=== PATIENT | male | born 1950 | race Caucasian/White ===

== ENCOUNTER 2022-09-01 14:37 | Emergency (ER) | payer OTHER ==
[2022-09-01] MEDS ORDERED: NA CHLORIDE 0.9% 500 ML ONE (15:05)
[2022-09-01 15:45] LABS: Absolute Lymphocytes (CBC) 0.6 K/uL (0.7-4.9); Hematocrit 34.9 % (39.6-49.0); Lymphocytes % 5.3 % (15.3-44.8); MCV 89.4 fL (80-100); MPV 6.5 fL (7.6-11.3); RBC Red Blood Cell Count 3.91 M/uL (4.33-5.43)
[2022-09-01 15:59] LABS: Protime INR 1.23
[2022-09-01 16:21] LABS: Albumin 2.9 g/dL (3.4-5.0); Bilirubin Direct 0.2 mg/dL (0-0.2); Bilirubin Total 0.7 mg/dL (0.2-1.0); Magnesium 1.7 mg/dL (1.8-2.4); Potassium 4.2 mmol/L (3.5-5.1); Protein, Total 7.8 g/dL (6.4-8.2); Troponin High Sensitivity 9.6 pg/mL (<58.9)
[2022-09-01 16:23] LABS: SARS-COV-2 RT PCR NEGATIVE (NEGATIVE)
--- NOTE | 2022-09-01 16:30 | RAD REPORT ---
EXAM DESCRIPTION: Adam Single View09/01/2022 3:34 pm CLINICAL HISTORY: Shortness breath COMPARISON: none FINDINGS: Mild to moderate patchy opacities left lung base. Right lung appears clear of acute infiltrate. Heart is normal size. Calcified mediastinal lymph node IMPRESSION: Mild to moderate patchy opacities left lung base probably pneumonia
[2022-09-01] MEDS ORDERED: Levofloxacin 750mg IV 750 MG/150 ML BAG IV ONE (17:19)
--- NOTE | 2022-09-01 19:02 | EDPHYS ---
Physician Documentation [facility] Name: Sahil Taylor Age: 71 yrs Sex: Male : 1950 Arrival Date: 09/01/2022 Time: 14:39 Bed 15 Private MD: Abiodun Madrigal E ED Physician Duglas Galicia HPI: 09/01 14:47 This 71 yrs old Male presents to ER via Ambulatory with complaints of Breathing jmm Difficulty. 14:47 The patient has shortness of breath at rest. Onset: The symptoms/episode began/occurred jmm gradually, 2 week(s) ago. Duration: The symptoms are continuous. The patient's shortness of breath is aggravated by nothing, is alleviated by nothing. Associated signs and symptoms: Pertinent positives: non-productive cough. This is a 71 year old male with a history of dm, htn that presents to the ED with complaints of cough, fatigue, nausea, decreased appetite for 2 weeks. . Historical: - Allergies: 15:56 No Known Allergies; em6 - PMHx: 15:56 Type 2 diabetes mellitus; Hypertensive disorder; em6 - PSHx: 15:56 Stented artery; em6 - Immunization history:: Adult Immunizations up to date. - Social history:: Smoking status: unknown. ROS: 14:47 Constitutional: Positive for body aches. jmm 14:47 Respiratory: Positive for cough. 14:47 Abdomen/GI: Positive for nausea. 14:47 All other systems are negative. Exam: 14:47 Constitutional: This is a well developed, well nourished patient who is awake, alert, jmm and in no acute distress. Head/Face: atraumatic. Eyes: EOMI, no conjunctival erythema appreciated ENT: Moist Mucus Membranes Neck: Trachea midline, Supple Chest/axilla: Normal chest wall appearance and motion. Cardiovascular: Regular rate and rhythm. No edema appreciated 14:47 Abdomen/GI: Non distended Back: Normal ROM Skin: General appearance color normal MS/ Extremity: Moves all extremities, no obvious deformities appreciated, no edema noted to the lower extremities Neuro: Awake and alert Psych: Behavior is normal, Mood is normal, Patient is cooperative and pleasant 14:47 Respiratory: the patient does not display signs of respiratory distress, Respirations: normal, Breath sounds: decreased breath sounds, that are mild, are heard in the left posterior lower lobe. Vital Signs: 14:55 BP 139 / 61; Pulse 88; Resp 18; Temp 98.7; Pulse Ox 100% ; Weight 91.63 kg; Height 5 ko1 ft. 11 in. (180.34 cm); Pain 0/10; 15:45 BP 123 / 53; Pulse 70; Resp 18; Pulse Ox 99% on R/A; em6 16:30 BP 141 / 58; Pulse 76; Resp 16; Pulse Ox 98% on R/A; em6 18:00 BP 135 / 62; Pulse 82; Resp 20; Pulse Ox 97% on R/A; em6 19:28 BP 136 / 68; Pulse 80; Resp 18; Pulse Ox 97% on R/A; em6 14:55 Body Mass Index 28.17 (91.63 kg, 180.34 cm) ko1 MDM: 14:47 Patient medically screened. [facility] 18:10 Data reviewed: vital signs, nurses notes. Counseling: I had a detailed discussion with [facility] the patient and/or guardian regarding: the historical points, exam findings, and any diagnostic results supporting the discharge/admit diagnosis, lab results, radiology results, the need for outpatient follow up, to return to the emergency department if symptoms worsen or persist or if there are any questions or concerns that arise at home. ED course: Patient is alert and non toxic in appearance in the ED. No signs of resp distress. Patient advised to follow up with pcp and otherwise given strict return precautions. Patient understood and agrees with the plan of care. . 09/01 14:59 Order name: Basic Metabolic Panel; Complete Time: 16:24 [facility] 09/01 14:59 Order name: CBC with Diff; Complete Time: 16:04 [facility] 09/01 14:59 Order name: LFT's; Complete Time: 16:24 [facility] 09/01 14:59 Order name: Magnesium; Complete Time: 16:24 [facility] 09/01 14:59 Order name: NT PRO-BNP; Complete Time: 16:24 [facility] 09/01 14:59 Order name: PT-INR; Complete Time: 16:04 [facility] 09/01 14:59 Order name: Troponin HS; Complete Time: 16:24 [facility] 09/01 14:59 Order name: XRAY Chest (1 view); Complete Time: 16:38 [facility] 09/01 14:59 Order name: EKG; Complete Time: 15:00 [facility] 09/01 14:59 Order name: COVID-19/FLU A+B/RSV; Complete Time: 16:24 [facility] 09/01 15:00 Order name: Lactate w/ 2H reflex if indic.; Complete Time: 16:24 [facility] 09/01 15:00 Order name: Blood Culture Adult (2) [facility] 09/01 14:59 Order name: Cardiac monitoring; Complete Time: 15:50 [facility] 09/01 14:59 Order name: EKG - Nurse/Tech; Complete Time: 15:50 [facility] 09/01 14:59 Order name: IV Saline Lock; Complete Time: 15:49 [facility] 09/01 14:59 Order name: Labs collected and sent; Complete Time: 15:49 [facility] 09/01 14:59 Order name: O2 Per Protocol; Complete Time: 15:50 [facility] 09/01 14:59 Order name: O2 Sat Monitoring; Complete Time: 15:50 [facility] Administered Medications: 15:50 Drug: NS 0.9% 500 ml Route: IV; Rate: bolus; Site: right antecubital; em6 16:49 Follow up: Response: No adverse reaction; IV Status: Completed infusion; IV Intake: em6 500ml 17:25 Drug: LevaQUIN (levofloxacin) 750 mg Volume: 150 ml; Route: IVPB; Infused Over: 90 em6 mins; Site: right antecubital; 19:00 Follow up: Response: No adverse reaction; IV Status: Completed infusion; IV Intake: em6 150ml Disposition: 09/02 10:51 Co-signature as Attending Physician, Duglas Galicia MD I agree with the assessment and kdr plan of care. Disposition Summary: 09/01/22 19:02 Discharge Ordered Location: Home [facility] Condition: Stable [facility] Diagnosis - Unspecified bacterial pneumonia [facility] Followup: [facility] - With: Abiodun Madrigal MD - When: 1 - 2 days - Reason: Recheck today's complaints, Continuance of care, Re-evaluation by your physician Discharge Instructions: - Discharge Summary Sheet kdr - Community-Acquired Pneumonia, Adult [facility] Forms: - Medication Reconciliation Form [facility] - Thank You Letter [facility] - Antibiotic Education [facility] - Prescription Opioid Use [facility] Prescriptions: - levofloxacin 750 mg Oral Tablet - take 1 tablet by ORAL route once daily for 6 days; 6 tablet; Refills: 0, kdr Product Selection Permitted - PROMETHAZINE DM - take 10 milliliter by ORAL route every 4-6 hours As needed; 200 milliliter; jmm Refills: 0, Product Selection Permitted Signatures: Dispatcher [employer] Duglas Heaton MD MD kdr Drew Go PA PA jmm Martinez, Erika RN RN em6 Phuong Pineda RN RN ko1
--- NOTE | 2022-09-01 19:02 | ER ---
Nurse's Notes [facility] Name: Sahil Taylor Age: 71 yrs Sex: Male : 1950 Arrival Date: 09/01/2022 Time: 14:39 Bed 15 Private MD: Abiodun Young E Diagnosis: Unspecified bacterial pneumonia Presentation: 09/01 14:55 Chief complaint: Patient states: " we were at dr. young office and when she listened to ko1 my lungs she told us to go to the er to get a chest X-ray and some workup ". Coronavirus screen: Client denies travel out of the [place] in the last 14 days. Ebola Screen: Patient negative for fever greater than or equal to 101.5 degrees Fahrenheit, and additional compatible Ebola Virus Disease symptoms. Initial Sepsis Screen: Does the patient meet any 2 criteria? No. Patient's initial sepsis screen is negative. Does the patient have a suspected source of infection? No. Patient's initial sepsis screen is negative. Risk Assessment: Do you want to hurt yourself or someone else? Patient reports no desire to harm self or others. Onset of symptoms was August 25, 2022. 14:55 Acuity: PARDEEP 3 ko1 14:55 Method Of Arrival: Ambulatory ko1 Triage Assessment: 14:58 General: Appears in no apparent distress. Behavior is cooperative. Respiratory: Onset: ko1 The symptoms/episode began/occurred gradually. Respiratory: the patient has mild shortness of breath. Historical: - Allergies: 15:56 No Known Allergies; em6 - PMHx: 15:56 Type 2 diabetes mellitus; Hypertensive disorder; em6 - PSHx: 15:56 Stented artery; em6 - Immunization history:: Adult Immunizations up to date. - Social history:: Smoking status: unknown. Screenin:55 Abuse screen: Denies threats or abuse. Nutritional screening: No deficits noted. ko1 Tuberculosis screening: No symptoms or risk factors identified. 15:57 Fall Risk Ambulatory Aid- None/Bed Rest/Nurse Assist (0 pts). Gait- Normal/Bed em6 Rest/Wheelchair (0 pts) Total Singh Fall Scale indicates No Risk (0-24 pts). Assessment: 14:54 General: Appears in no apparent distress. Behavior is cooperative. Pain: Denies pain. ko1 Neuro: Level of Consciousness is awake, alert, obeys commands, Oriented to person, place, time, situation. Cardiovascular: Heart tones present Patient's skin is warm and dry. Respiratory: Reports shortness of breath cough that is Airway is patent Respiratory effort is even, unlabored, Respiratory pattern is regular, agonal Breath sounds are clear bilaterally. GI: Abdomen is non-distended, Bowel sounds present X 4 quads. Abd is soft and non tender X 4 quads. : No signs and/or symptoms were reported regarding the genitourinary system. EENT:. EENT: No signs and/or symptoms were reported regarding the EENT system. Derm: No signs and/or symptoms reported regarding the dermatologic system. Musculoskeletal: Circulation, motion, and sensation intact. 15:50 Reassessment: Patient appears in no apparent distress at this time. No changes from em6 previously documented assessment. Patient and/or family updated on plan of care and expected duration. Pain level reassessed. Patient is alert, oriented x 3, equal unlabored respirations, skin warm/dry/pink. 15:57 Cardiovascular: Rhythm is sinus rhythm. em6 16:50 Reassessment: Patient appears in no apparent distress at this time. No changes from em6 previously documented assessment. Patient and/or family updated on plan of care and expected duration. Pain level reassessed. Patient is alert, oriented x 3, equal unlabored respirations, skin warm/dry/pink. 17:50 Reassessment: Patient appears in no apparent distress at this time. No changes from em6 previously documented assessment. Patient and/or family updated on plan of care and expected duration. Pain level reassessed. Patient is alert, oriented x 3, equal unlabored respirations, skin warm/dry/pink. 18:50 Reassessment: Patient appears in no apparent distress at this time. No changes from em6 previously documented assessment. Patient and/or family updated on plan of care and expected duration. Pain level reassessed. Patient is alert, oriented x 3, equal unlabored respirations, skin warm/dry/pink. Vital Signs: 14:55 BP 139 / 61; Pulse 88; Resp 18; Temp 98.7; Pulse Ox 100% ; Weight 91.63 kg; Height 5 ko1 ft. 11 in. (180.34 cm); Pain 0/10; 15:45 BP 123 / 53; Pulse 70; Resp 18; Pulse Ox 99% on R/A; em6 16:30 BP 141 / 58; Pulse 76; Resp 16; Pulse Ox 98% on R/A; em6 18:00 BP 135 / 62; Pulse 82; Resp 20; Pulse Ox 97% on R/A; em6 19:28 BP 136 / 68; Pulse 80; Resp 18; Pulse Ox 97% on R/A; em6 14:55 Body Mass Index 28.17 (91.63 kg, 180.34 cm) ko1 ED Course: 14:39 Patient arrived in ED. am2 14:39 Abiodun Young MD is Private Physician. am2 14:40 Drew Go PA is PHCP. jmm 14:40 Duglas Galicia MD is Attending Physician. jmm 14:42 Phuong Pineda, MARK ANTHONY is Primary Nurse. ko1 14:58 Triage completed. ko1 14:58 Arm band placed on. ko1 14:59 Bed in low position. Call light in reach. Side rails up X 1. strategic planning director on. Pulse ko1 ox on. NIBP on. Warm blanket given. 15:25 Initial lab(s) drawn, by me, sent to lab. First set of blood cultures drawn by me. em1 Inserted saline lock: 20 gauge in right antecubital area, using aseptic technique. Blood collected. 15:36 XRAY Chest (1 view) In Process Unspecified. EDMS 15:45 Second set of blood cultures drawn. em1 19:01 Abiodun Young MD is Referral Physician. [facility] 19:30 No provider procedures requiring assistance completed. IV discontinued, intact, em6 bleeding controlled, No redness/swelling at site. Pressure dressing applied. Administered Medications: 15:50 Drug: NS 0.9% 500 ml Route: IV; Rate: bolus; Site: right antecubital; em6 16:49 Follow up: Response: No adverse reaction; IV Status: Completed infusion; IV Intake: em6 500ml 17:25 Drug: LevaQUIN (levofloxacin) 750 mg Volume: 150 ml; Route: IVPB; Infused Over: 90 em6 mins; Site: right antecubital; 19:00 Follow up: Response: No adverse reaction; IV Status: Completed infusion; IV Intake: em6 150ml Medication: 19:30 VIS not applicable for this client. em6 Intake: 16:49 IV: 500ml; Total: 500ml. em6 19:00 IV: 150ml; Total: 650ml. em6 Outcome: 19:02 Discharge ordered by . adriel 19:30 Discharged to home via wheelchair. em6 19:30 Condition: stable 19:30 Discharge instructions given to patient, family, Instructed on discharge instructions, follow up and referral plans. Demonstrated understanding of instructions, follow-up care, medications, Prescriptions given X 2. 19:30 Patient left the ED. em6 Signatures: Dispatcher [employer] EDMS Drew Go PA PA jmm Martinez, Eric em1 Johanna Giordano am2 Margaret Simental, RN RN em6 Phuong Pineda RN RN ko1
[2022-09-01 21:39] VITALS: TEMP 98.7
[2022-09-01 21:55] VITALS: O2SAT 97
[2022-09-01 22:00] VITALS: BP 136/68
--- NOTE | 2022-09-02 08:38 | EKG ---
Test Date: 2022-09-01 Test Time: 15:09:53 [employer] Coach: MEASUREMENT RESULTS: Intervals: Rate: 90 MD: 200 QRSD: 130 QT: 374 QTc: 457 Benton: P: -24 MD: 200 QRS: 14 T: 40 INTERPRETIVE STATEMENTS: Normal sinus rhythm Right bundle branch block Septal infarct, age undetermined Possible Lateral infarct, age undetermined Possible Inferior infarct, age undetermined Abnormal ECG No previous ECG available for comparison Electronically Signed On 09-02-22 08:34:45 SENIOR BENEFITS ANALYST by Robert Tiwari
== END 2022-09-01 19:30 | disposition home or self-care (01) ==
LOC: ER 14:37
DX: J15.9 Unspecified bacterial pneumonia (principal); E11.9 Type 2 diabetes mellitus without complications; I10 Essential (primary) hypertension; Z20.822 Contact with and (suspected) exposure to COVID-19
CPT/HCPCS: 96365; 96361; 93005; 87040 ×2; 85025; 80048; 36415; 83735; 85610; 80076; 83605; 84484; 83880; 0241U; 71045; 99284; 96366; J7040

== ENCOUNTER 2024-02-06 10:22 | Emergency (ER) | payer OTHER ==
[2024-02-06 11:11] LABS: Absolute Eosinophils 0.1 K/uL (0-0.5); Absolute Lymphocytes (CBC) 0.5 K/uL (0.7-4.9); Absolute Monocytes 0.4 K/uL (0.1-1.3); Absolute Neutrophil 3.8 K/uL (1.8-8.0); Basophils % 0.7 % (0-1.3); Eosinophils % 2.9 % (0-4.4); Hematocrit 42.7 % (39.6-49.0); Hemoglobin 14.4 g/dL (13.6-17.9); Lymphocytes % 9.9 % (15.3-44.8); MCH 30.8 pg (27.0-35.0); MCHC 33.8 g/dL (32.0-36.0); MCV 91.1 fL (80-100); MPV 7.5 fL (7.6-11.3); Monocytes % 8.6 % (3.3-12.3); Neutrophils % 77.9 % (41.7-73.7); Nucleated Red Blood Cells % 0.1 % (0-0); Platelets 180 thou/uL (152-406); RBC Red Blood Cell Count 4.69 M/uL (4.33-5.43); Red Cell Distribution Width 14.2 % (12.1-15.2)
[2024-02-06 11:15] LABS: PT Prothrombin Time 11.7 SECONDS (9.5-12.5); PTT, Activated Partial Thromb 29.5 SECONDS (24.3-36.9); Protime INR 1.07
[2024-02-06] MEDS ORDERED: CEFTRIAXONE 1000 MG/VIAL ONE (11:15)
[2024-02-06] MEDS ORDERED: AZITHROMYCIN 500 MG INJ IVPB ONE (11:15)
[2024-02-06] MEDS ORDERED: NA CHLORIDE 0.9% 250 ML ONE (11:16)
[2024-02-06] MEDS ORDERED: MORPHINE 4 MG/ML SYR ONE (11:16)
[2024-02-06 11:28] LABS: Albumin 3.7 g/dL (3.4-5.0); Albumin/Globulin Ratio 0.9 (1.1-1.8); Anion Gap 10.1 mEq/L (5.0-15.0); Bilirubin Direct 0.2 mg/dL (0-0.2); Bilirubin Indirect, Calculated 0.6 mg/dL (0.2-0.8); Bilirubin Total 0.8 mg/dL (0.2-1.0); Globulin 4.3 g/dL (2.3-3.5); Potassium 4.1 mEq/L (3.5-5.1); Troponin High Sensitivity 14.1 pg/mL (<58.9)
[2024-02-06 11:45] LABS: INFLUENZA A NAA NEGATIVE (NEGATIVE); RESPIRATORY SYNCYTIAL VIR NAA NEGATIVE (NEGATIVE)
--- NOTE | 2024-02-06 11:49 | RAD REPORT ---
EXAM DESCRIPTION: RAD - Chest Single View - 02/06/2024 11:44 am CLINICAL HISTORY: COPD;Cough Chest pain. COMPARISON: Chest Single View dated 09/01/2022 FINDINGS: Portable technique limits examination quality. The lungs are underinflated but grossly clear. The heart is normal in size. No displaced fractures. IMPRESSION: No acute intrathoracic process suspected.
--- NOTE | 2024-02-06 11:57 | RAD REPORT ---
EXAM DESCRIPTION: CT - Chest Abdomen Pelvis W Cont - 02/06/2024 11:48 am CLINICAL HISTORY: Chest and abdomen pain. sob, abd pain, R side hernia pain COMPARISON: No comparisons TECHNIQUE: Approximately 100 mL nonionic IV contrast was administered to the patient. All CT scans are performed using dose optimization technique as appropriate and may include automated exposure control or mA/KV adjustment according to patient size. FINDINGS: Mild to moderate COPD.Normal thyroid gland.No pleural or pericardial effusion.No intrathor acic adenopathy. The liver, spleen, pancreas, adrenal glands and kidneys are within normal limits. No bowel obstruction, free air, free fluid or abscess. The prominent sigmoid diverticulosis coli with out diverticulitis. The appendix is not identified as a discrete structure, however, no secondary fin dings of appendicitis are identified. No pathologic lymphadenopathy in the abdomen or pelvis. 4.9 cm infrarenal abdominal aortic aneurysm. No acute fracture seen. IMPRESSION: [id number] COPD. Sigmoid diverticulosis coli without diverticulitis. 4.9 cm infrarenal abdominal aortic aneurysm.
[2024-02-06] MEDS ORDERED: NA CHLORIDE 0.9% 1,000 ML ONE (12:04)
[2024-02-06 12:14] LABS: SARS-COV-2 RT PCR POSITIVE (NEGATIVE)
[2024-02-06] MEDS ORDERED: METHYLPREDNISOLONE 125 MG INJ ONE (12:48)
--- NOTE | 2024-02-06 14:14 | ER ---
Nurse's Notes [facility] Name: Sahil Taylor Age: 73 yrs Sex: Male : 1950 Arrival Date: 02/06/2024 Time: 10:22 Bed 5 Private MD: Diagnosis: SARS-associated coronavirus as the cause of diseases classified elsewhere;COPD/ Chronic obstructive pulmonary disease with (acute) exacerbation Presentation: 02/05 10:35 Chief complaint: Cough and SOB x 4-5 days, right sided abdominal pain since this morning. Coronavirus screen: At this time, the client does not indicate any symptoms associated with coronavirus-19. Ebola Screen: No symptoms or risks identified at this time. Initial Sepsis Screen: Does the patient meet any 2 criteria? RR > 20 per min. No. Patient's initial sepsis screen is negative. Does the patient have a suspected source of infection? No. Patient's initial sepsis screen is negative. Risk Assessment: Do you want to hurt yourself or someone else? Patient reports no desire to harm self or others. Onset of symptoms was February 02, 2024. 10:35 Method Of Arrival: Ambulatory hb 10:35 Acuity: PARDEEP 2 hb Triage Assessment: 10:37 General: Appears mildly distressed. Behavior is calm, cooperative. Pain: Pain currently hb is 7 out of 10 on a pain scale. Neuro: Level of Consciousness is awake, alert, obeys commands, Oriented to person, place, time, situation. Cardiovascular: Patient's skin is warm and dry. Respiratory: Reports shortness of breath at rest on exertion cough that is Respiratory effort is labored, Respiratory pattern is tachypnea Onset: The symptoms/episode began/occurred 4 days, the patient has moderate shortness of breath. GI: Reports right sided abdominal pain. Historical: - Allergies: 10:36 No Known Allergies; hb - PMHx: 10:36 Hypertensive disorder; Type 2 Diabetes Mellitus; hb 10:37 COPD; hb - PSHx: 10:36 Stented artery; hb - Immunization history:: Adult Immunizations up to date. - Infectious Disease History:: Denies. - Social history:: Smoking status: Patient/guardian denies using tobacco, the patient reports quitting approximately 5 years ago. Screenin:[address] [facility] ED Fall Risk Assessment (Adult) History of falling in the last 3 months, iw including since admission No falls in past 3 months (0 pts) Confusion or Disorientation No (0 pts) Intoxicated or Sedated No (0 pts) Impaired Gait No (0 pts) Mobility Assist Device Used No (0 pt) Altered Elimination No (0 pt) Score/Fall Risk Level 0 - 2 = Low Risk. Abuse screen: Denies threats or abuse. Denies injuries from another. Nutritional screening: No deficits noted. Tuberculosis screening: No symptoms or risk factors identified. Assessment: 10:40 General: Appears distressed, uncomfortable, Behavior is calm, cooperative, appropriate ll1 for age. Pain: Complains of pain in R abdomen Quality of pain is described as aching. Cardiovascular: Reports chest pain, fatigue, shortness of breath, Rhythm is regular. Respiratory: Reports shortness of breath cough that is. GI: Reports upper abdominal pain. 11:20 Reassessment: No changes from previously documented assessment. Patient and/or family ll1 updated on plan of care and expected duration. Pain level reassessed. Patient is alert, oriented x 3, equal unlabored respirations, skin warm/dry/pink. 12:10 Reassessment: No changes from previously documented assessment. Patient and/or family ll1 updated on plan of care and expected duration. Pain level reassessed. Patient is alert, oriented x 3, equal unlabored respirations, skin warm/dry/pink. Patient states feeling better. 13:38 Reassessment: Patient appears in no apparent distress at this time. Patient and/or iw family updated on plan of care and expected duration. Pain level reassessed. Patient is alert, oriented x 3, equal unlabored respirations, skin warm/dry/pink. Patient states feeling better. Patient states symptoms have improved. Vital Signs: 10:35 BP 122 / 73; Pulse 83; Resp 28; Temp 97.3(TE); Pulse Ox 100% on R/A; Weight 98.88 kg; hb Height 6 ft. 0 in. ; Pain 7/10; 13:38 BP 135 / 64; Pulse 69; Resp 20; Pulse Ox 95% on R/A; iw 14:15 BP 150 / 63; Pulse 69; Resp 18 S; Pulse Ox 97% on R/A; as6 10:35 Body Mass Index 29.57 (98.88 kg, 182.88 cm) hb 10:35 Pain Scale: Adult hb ED Course: 10:25 Patient arrived in ED. mg5 10:25 Douglas Garcia MD is Attending Physician. ec2 10:36 Triage completed. hb 10:38 Malia Miranda, RN is Primary Nurse. ll1 10:38 Arm band placed on. hb 10:42 Initial lab(s) drawn, by me, sent to lab. Inserted saline lock: 22 gauge in right ll1 antecubital area, using aseptic technique. Blood collected. 11:45 XRAY Chest (1 view) In Process Unspecified. EDMS 11:49 CT Chest, Abdomen, Pelvis - W/Contrast In Process Unspecified. EDMS 13:39 Primary Nurse role handed off by Malia Miranda, RN iw 13:39 Irene Corcoran RN is Primary Nurse. iw 13:39 Patient has correct armband on for positive identification. Provided Education on: . iw 14:15 No provider procedures requiring assistance completed. as6 14:23 IV discontinued, intact, bleeding controlled, No redness/swelling at site. Pressure as6 dressing applied. Administered Medications: 11:23 Drug: morphine IVP or IV 4 mg IVP once over 4 mins Route: IVP; Infused Over: 4 mins; ll1 Site: right antecubital; 13:05 Follow up: Response: No adverse reaction; Pain is decreased; RASS: Alert and Calm (0) ll1 11:23 Drug: Rocephin IV 1 grams IV at calculated rate once; Given slow IV push per pharmacy ll1 instructions Route: IV; Rate: calculated rate; Site: right antecubital; 13:05 Follow up: Response: No adverse reaction; IV Status: Completed infusion; IV Intake: [id number] 11:34 Drug: AZITHromycin IVPB 500 mg IVPB once over 1 hrs; (mix in 250 mL NS) Route: IVPB; ll1 Infused Over: 1 hrs; Site: right antecubital; 14:16 Follow up: Response: No adverse reaction; IV Status: Completed infusion; IV Intake: as6 250ml 11:38 CANCELLED (Physician Discretion): ns 0.9% 500 ml IV at bolus once ec2 12:09 Drug: NS 0.9% IV 1000 ml IV at 1 bolus Per protocol; 1000 mL bolus Route: IV; Rate: 1 ll1 bolus; Site: right antecubital; 14:16 Follow up: Response: No adverse reaction; IV Status: Completed infusion; IV Intake: as6 1000ml 12:55 Drug: MethylPrednisoLONE IVP 125 mg IVP once Route: IVP; Site: right antecubital; as6 14:16 Follow up: Response: No adverse reaction as6 Medication: 14:15 VIS not applicable for this client. as6 Intake: 13:05 IV: 10ml; Total: 10ml. ll1 14:16 IV: 1000ml; Total: 1010ml. as6 14:16 IV: 250ml; Total: 1260ml. as6 Outcome: 14:13 Discharge ordered by . ec2 14:23 Discharged to home ambulatory, with significant other, as6 14:23 Condition: stable 14:23 Discharge instructions given to patient, significant other, Instructed on discharge instructions, follow up and referral plans. medication usage, Demonstrated understanding of instructions, follow-up care, medications, Prescriptions given X 3, 14:23 Patient left the ED. as6 Signatures: Dispatcher [employer] Irene Briscoe RN RN Mickie Rodriguez RN RN hb Lewis, Lynsay, RN RN ll1 Braxton Leger RN RN as6 Cici Keen mg5 Douglas Garcia MD MD ec2 Corrections: (The following items were deleted from the chart) 10:37 10:36 PMHx: COPD (Stented artery); hb hb
--- NOTE | 2024-02-06 14:14 | EDPHYS ---
Physician Documentation [facility] Name: Sahil Taylor Age: 73 yrs Sex: Male : 1950 Arrival Date: 02/06/2024 Time: 10:22 Bed 5 Private MD: ED Physician Douglas Garcia HPI: 02/05 10:46 This 73 yrs old Male presents to ER via Ambulatory with complaints of ec2 Shortness Of Breath, Abdominal Pain. 10:46 Patient arrives today for evaluation of shortness of breath and abdominal pain. Patient ec2 reports he been experiencing shortness of breath ongoing for the past week. Patient reports persistent cough. Patient reports productive sputum. Patient reports previous smoker, no longer a smoker. Patient also complaining of abdominal pain, right-sided, feels a bulge in the area. Patient reports no nausea or vomiting or issues with bowels.. Historical: - Allergies: 10:36 No Known Allergies; hb - PMHx: 10:36 Hypertensive disorder; Type 2 Diabetes Mellitus; hb 10:37 COPD; hb - PSHx: 10:36 Stented artery; hb - Immunization history:: Adult Immunizations up to date. - Infectious Disease History:: Denies. - Social history:: Smoking status: Patient/guardian denies using tobacco, the patient reports quitting approximately 5 years ago. ROS: 10:46 Constitutional: as per hpi ec2 Exam: 10:46 Constitutional: GEN: NAD Head: atraumatic Eyes: EOMI Ears: External ears are ec2 normal. CV: regular rate LUNGS: Tachypnea noted, rales in the left lung arteaga. ABD: non-distended, tender in the right upper abdomen, hernia present, no overlying erythema or warmth or discoloration noted. SKIN: no evidence of rashes MSK: no evidence of trauma NEURO: moves all extremities equally Vital Signs: 10:35 BP 122 / 73; Pulse 83; Resp 28; Temp 97.3(TE); Pulse Ox 100% on R/A; Weight 98.88 kg; hb Height 6 ft. 0 in. ; Pain 7/10; 13:38 BP 135 / 64; Pulse 69; Resp 20; Pulse Ox 95% on R/A; iw 14:15 BP 150 / 63; Pulse 69; Resp 18 S; Pulse Ox 97% on R/A; as6 10:35 Body Mass Index 29.57 (98.88 kg, 182.88 cm) hb 10:35 Pain Scale: Adult hb MDM: 10:30 Patient medically screened. ec2 10:46 Data reviewed: vital signs. ED course: Patient arrives today for evaluation of ec2 shortness of breath and abdominal pain. Examination remarkable for respiratory findings as well as abdominal findings as above. Evaluating for processes such as pneumonia, volume overload as well as incarcerated hernia.. 11:12 ED course: EKG independently reviewed and interpreted by me, shows sinus rhythm, rate ec2 of 81, no acute ST segment elevations, intervals are nonconcerning, right bundle branch block noted.. 11:36 ED course: Metabolic profile shows appropriate electrolytes. CBC is reassuring, no ec2 marked leukocytosis appreciated. LFTs unremarkable. Lactate minimally elevated at 2.2. BNP within normal ranges. Troponin within normal ranges. Pending imaging and swabs. I will give the patient a small fluid crystalloid bolus. . 11:53 ED course: On reassessment patient with improvement of abdominal pain. Pending imaging..ec2 11:53 ED course: Chest x-ray independently reviewed and interpreted by me, shows no acute ec2 intrathoracic process.. 12:08 ED course: CT imaging shows moderate COPD, under 5 cm abdominal aneurysm can follow-up ec2 outpatient expectantly. I do not suspect this to be the source of the patient's abdominal pain given the reproducibility and the notable abdominal wall hernia. . 12:08 ED course: Presentation consistent with COPD exacerbation. Will give the patient ec2 steroids, admit for antibiotics and continued steroid administration.. 12:31 ED course: On reassessment patient with improvement in symptoms. I discussed admission, ec2 patient would like to attempt discharge home, states he has inhalers at home and will continue to use them, he was agreeable to obtain a repeat lactic acid after completion of crystalloid.. 14:09 ED course: Repeat lactic acid within appropriate ranges, on reassessment patient is in ec2 no acute distress, will discharge home and have patient follow-up with primary care doctor, strict and return precautions are for changes of mind to return to the ED to be reevaluated and potentially admitted. . 02/05 10:45 Order name: Basic Metabolic Panel; Complete Time: 11:36 ec2 02/05 10:45 Order name: CBC with Diff; Complete Time: 11:36 ec2 02/05 10:45 Order name: NT PRO-BNP; Complete Time: 11:36 ec2 02/05 10:45 Order name: PT-INR; Complete Time: 11:36 ec2 02/05 10:45 Order name: Troponin HS; Complete Time: 11:36 ec2 02/05 10:45 Order name: LFT's; Complete Time: 11:36 ec2 02/05 10:45 Order name: Lactate w/ 2H reflex if indic.; Complete Time: 11:36 ec2 02/05 10:45 Order name: Blood Culture Adult (2) ec2 02/05 10:45 Order name: Ptt, Activated; Complete Time: 11:36 ec2 02/05 10:46 Order name: COVID-19/FLU A+B/RSV; Complete Time: 12:14 ec2 02/05 14:05 Order name: Lactate Sepsis 2 HR Follow-up; Complete Time: 14:09 EDMS 02/05 10:45 Order name: XRAY Chest (1 view); Complete Time: 11:53 ec2 02/05 10:45 Order name: CT Chest, Abdomen, Pelvis - W/Contrast; Complete Time: 12:06 ec2 02/05 10:45 Order name: EKG; Complete Time: 10:45 ec2 02/05 10:45 Order name: Cardiac monitoring; Complete Time: 11:03 ec2 02/05 10:45 Order name: EKG - Nurse/Tech; Complete Time: 11:03 2 02/05 10:45 Order name: IV Saline Lock; Complete Time: 10:48 02/05 10:45 Order name: Labs collected and sent; Complete Time: 10:48 2 02/05 10:45 Order name: O2 Per Protocol; Complete Time: 10:48 ec2 02/05 10:45 Order name: O2 Sat Monitoring; Complete Time: 10:48 2 02/05 10:45 Order name: IV Saline Lock - Large Bore; Complete Time: 11:12 ec2 02/05 10:45 Order name: Vital Signs; Complete Time: 10:48 ec2 02/05 12:31 Order name: Misc. Order: repeat lactic after finish fluids; Complete Time: 13:38 ec2 Administered Medications: 11:23 Drug: morphine IVP or IV 4 mg IVP once over 4 mins Route: IVP; Infused Over: 4 mins; ll1 Site: right antecubital; 13:05 Follow up: Response: No adverse reaction; Pain is decreased; RASS: Alert and Calm (0) ll1 11:23 Drug: Rocephin IV 1 grams IV at calculated rate once; Given slow IV push per pharmacy ll1 instructions Route: IV; Rate: calculated rate; Site: right antecubital; 13:05 Follow up: Response: No adverse reaction; IV Status: Completed infusion; IV Intake: [id number] 11:34 Drug: AZITHromycin IVPB 500 mg IVPB once over 1 hrs; (mix in 250 mL NS) Route: IVPB; ll1 Infused Over: 1 hrs; Site: right antecubital; 14:16 Follow up: Response: No adverse reaction; IV Status: Completed infusion; IV Intake: as6 250ml 11:38 CANCELLED (Physician Discretion): ns 0.9% 500 ml IV at bolus once ec2 12:09 Drug: NS 0.9% IV 1000 ml IV at 1 bolus Per protocol; 1000 mL bolus Route: IV; Rate: 1 ll1 bolus; Site: right antecubital; 14:16 Follow up: Response: No adverse reaction; IV Status: Completed infusion; IV Intake: as6 1000ml 12:55 Drug: MethylPrednisoLONE IVP 125 mg IVP once Route: IVP; Site: right antecubital; as6 14:16 Follow up: Response: No adverse reaction as6 Disposition Summary: 02/06/24 14:13 Discharge Ordered Condition: Stable ec2 Diagnosis - SARS-associated coronavirus as the cause of diseases classified elsewhere ec2 - COPD/ Chronic obstructive pulmonary disease with (acute) exacerbation ec2 Followup: ec2 - With: Private Physician - When: - Reason: Re-evaluation by your physician Discharge Instructions: - Discharge Summary Sheet ec2 - Chronic Obstructive Pulmonary Disease Exacerbation ec2 Forms: - Medication Reconciliation Form ec2 - Antibiotic Education ec2 - Prescription Opioid Use ec2 - Patient Portal Instructions ec2 - Leadership Thank You Letter ec2 Prescriptions: - Paxlovid 300 mg (150 mg x 2)-100 mg Oral Tablet, Dose Pack - take 1 dose pack ORAL route per package directions; 1 unit; Refills: 0, Product ec2 Selection Permitted - Prednisone 20 mg Oral Tablet - take 2 tablets ORAL route once daily for 5 days; 10 tablet; Refills: 0, Product ec2 Selection Permitted - methocarbamol 500 mg Oral tablet - take 2 tablets ORAL route 4 times per day; 15 tablet; Refills: 0, Product ec2 Selection Permitted Signatures: Dispatcher [employer] EDMickie Goss RN RN Malia Miranda RN RN ll1 Braxton Leger RN RN as6 Douglas Garcia MD MD ec2 Corrections: (The following items were deleted from the chart) 10:37 10:36 PMHx: COPD (Stented artery); hb hb 10:46 10:45 BASIC METABOLIC PANEL+C.LAB.BRZ ordered. EDMS EDMS 10:46 10:45 CBC+H.LAB.BRZ ordered. EDMS EDMS 10:46 10:45 PROBNP+C.LAB.BRZ ordered. EDMS EDMS 10:46 10:45 PROTIME (+INR)+COAG.LAB.BRZ ordered. EDMS EDMS 10:46 10:45 Troponin High Sensitivity+C.LAB.BRZ ordered. EDMS EDMS 10:46 10:45 HEPATIC FUNCTION+C.LAB.BRZ ordered. EDMS EDMS 10:46 10:45 LACTATE+C.LAB.BRZ ordered. EDMS EDMS 10:46 10:45 BLOOD CULTURE*+BA.LAB.BRZ ordered. EDMS EDMS 10:46 10:45 PTT, ACTIVATED+COAG.LAB.BRZ ordered. EDMS EDMS 11:12 10:45 Accucheck ordered. ec2 hb 11:38 11:36 NS 0.9% IV 500 ml IV at bolus once ordered. ec2 ec2
[2024-02-06 14:44] VITALS: BP 150/63; TEMP 97.3; O2SAT 97
--- NOTE | 2024-02-08 13:23 | EKG ---
Test Date: 2024-02-06 Test Time: 11:07:37 [employer]: LML MEASUREMENT RESULTS: Intervals: Rate: 81 WA: 164 QRSD: 128 QT: 406 QTc: 471 [place]: P: [place]: 164 QRS: -6 T: 15 INTERPRETIVE STATEMENTS: Normal sinus rhythm Right bundle branch block Septal infarct, age undetermined Possible Lateral infarct, age undetermined Possible Inferior infarct, age undetermined Abnormal ECG Compared to ECG 09/01/2022 15:09:53 No significant changes Electronically Signed On 02-08-24 13:18:06 CDT by Nahum Goncalves
== END 2024-02-06 14:23 | disposition home or self-care (01) ==
LOC: ER 10:22
DX: U07.1 COVID-19 (principal); J44.1 Chronic obstructive pulmonary disease with (acute) exacerbation; R10.11 Right upper quadrant pain; I10 Essential (primary) hypertension; Z87.891 Personal history of nicotine dependence
CPT/HCPCS: 96365; 93005; 87040 ×2; 85025; 80048; 36415; 85610; 80076; 83605 ×2; 85730; 84484; 83880; 0241U; 71260; 74177; 71045; 96375; 99284; 96366; Q9967; J2919; J7050; J7030; J0696